=== PATIENT | female | born 1995 | race Caucasian/White ===

== ENCOUNTER 2016-11-11 22:05 | Emergency (ER) | payer OTHER ==
[~2016-11-11] VITALS: Ht 177.8 cm; Wt 109.0 kg
[2016-11-11] MEDS ORDERED: METF500T4 PO (23:03)
[2016-11-11] MEDS ORDERED: NORG1TAB57 PO (23:04)
[2016-11-11] MEDS ORDERED: ACETAMINOPHEN 500 MG TABLET ONE (23:14)
[2016-11-11 23:29] LABS: ASPARTATE AMINO TRANSFERASE 17 U/L (15-37); BLOOD UREA NITROGEN 14 mg/dL (7-18)
[2016-11-11] MEDS ORDERED: ACETAMINOPHEN 500 MG TABLET PO ONE (23:30)
[2016-11-12] MEDS ORDERED: SODIUM CHLORIDE 0.9%, 500ML IVBOLUS ONE (00:30)
[2016-11-12 00:33] LABS: HEMATOCRIT 40.2 % (34.6-47.8); HEMOGLOBIN 13.9 g/dL (11.7-16.4); WHITE BLOOD COUNT 10.5 x10^3/uL (4.5-13.2)
[2016-11-12] MEDS ORDERED: OMNIPAQUE 350 MG/ML, 100ML BOTTLE ONE (01:40)
[2016-11-12 03:31] VITALS: BP 130/84
== END 2016-11-12 03:34 | disposition home or self-care (01) ==
LOC: ED 22:47
DX: S86.911A Strain of unspecified muscle(s) and tendon(s) at lower leg level, right leg, initial encounter (principal); R06.00 Dyspnea, unspecified; X58.XXXA Exposure to other specified factors, initial encounter; Y93.89 Activity, other specified; Y92.89 Other specified places as the place of occurrence of the external cause; Y99.9 Unspecified external cause status
CPT/HCPCS: 36415; 71275; 80053; 84703; 85025; 85379; 93971; 96360; 99285; J7040; Q9967